=== PATIENT | female | born 1970 | race American Indian/Alaskan Native ===

== ENCOUNTER 2018-03-04 11:24 | Emergency (ER) | payer SELFPAY ==
[2018-03-04] MEDS ORDERED: BICILLIN L-A IM ONE (14:44)
[2018-03-04] MEDS ORDERED: NORCO PO ONE (14:44)
[2018-03-04] MEDS ORDERED: DECADRON IM ONE (14:44)
[2018-03-04] MEDS ORDERED: CATAPRES PO ONE (14:46)
--- NOTE | 2018-03-04 14:51 | Emergency Department Report ---
ED ENT HPI - General Chief complaint: High BP Stated complaint: EAR PAIN/HEAD PAIN Time Seen by Provider: 03/04/18 14:29 Source: patient Mode of arrival: Ambulatory Limitations: No Limitations - History of Present Illness Initial comments: He is a 47-year-old female who is complaining of 2-3 days of sore throat with radiation of pain to her right ear. Patient states pain is 8 out of 10 when she swallows. Patient has been not taking her blood pressure medicine past several days because of pain. Patient denies any nausea vomiting diarrhea or cough at this time. Patient has been around a child who also has been ill in the last week. - Related Data Home Medications Medication Instructions Recorded Confirmed Last Taken Lisinopril/Hydrochlorothiazide 1 tab PO QDAY 09/05/15 09/10/15 09/10/15 05:45 [Zestoretic 20-12.5 mg] Previous Rx's Medication Instructions Recorded Last Taken Type HYDROcodone/APAP 5-325 [[place] 1 - 2 each PO Q4HR PRN #30 tablet 09/10/15 Unknown Rx 5/325] HYDROcodone/ACETAMINOPHEN 15 ml PO Q6HR PRN #150 solution 03/04/18 Unknown Rx [Hydrocodon-Acetamin 7.5-325/15] predniSONE [Deltasone] 20 mg PO QDAY #5 tab 03/04/18 Unknown Rx Allergies Allergy/AdvReac Type Severity Reaction Status Date / Time codeine AdvReac Dizziness Verified 08/12/15 09:53 morphine AdvReac Unknown Verified 07/13/15 02:38 ED Dental HPI - General Chief complaint: High BP Stated complaint: EAR PAIN/HEAD PAIN Time Seen by Provider: 03/04/18 14:29 Source: patient Mode of arrival: Ambulatory Limitations: No Limitations - Related Data Home Medications Medication Instructions Recorded Confirmed Last Taken Lisinopril/Hydrochlorothiazide 1 tab PO QDAY 09/05/15 09/10/15 09/10/15 05:45 [Zestoretic 20-12.5 mg] Previous Rx's Medication Instructions Recorded Last Taken Type HYDROcodone/APAP 5-325 [[place] 1 - 2 each PO Q4HR PRN #30 tablet 09/10/15 Unknown Rx 5/325] HYDROcodone/ACETAMINOPHEN 15 ml PO Q6HR PRN #150 solution 03/04/18 Unknown Rx [Hydrocodon-Acetamin 7.5-325/15] predniSONE [Deltasone] 20 mg PO QDAY #5 tab 03/04/18 Unknown Rx Allergies Allergy/AdvReac Type Severity Reaction Status Date / Time codeine AdvReac Dizziness Verified 08/12/15 09:53 morphine AdvReac Unknown Verified 07/13/15 02:38 ED Review of Systems ROS: Stated complaint: EAR PAIN/HEAD PAIN Other details as noted in HPI Constitutional: denies: chills, fever Eyes: denies: eye pain, eye discharge, vision change ENT: ear pain, throat pain. denies: dental pain, epistaxis Respiratory: denies: cough, shortness of breath, wheezing Cardiovascular: denies: chest pain, palpitations Endocrine: no symptoms reported Gastrointestinal: denies: abdominal pain, nausea, diarrhea Genitourinary: denies: urgency, dysuria, discharge Musculoskeletal: denies: back pain, joint swelling, arthralgia Skin: denies: rash, lesions Neurological: denies: headache, weakness, paresthesias Psychiatric: denies: anxiety, depression Hematological/Lymphatic: denies: easy bleeding, easy bruising ED Past Medical Hx - Past Medical History Hx Hypertension: Yes Hx Heart Attack/AMI: Yes (Mild in 1997; Denies chest pain) Hx Renal Disease: No Hx Arthritis: Yes (KNEES) Hx Headaches / Migraines: Yes Hx Seizures: No Hx Asthma: No - Surgical History Additional Surgical History: Ab0 - Social History Smoking Status: Never Smoker Substance Use Type: None - Medications Home Medications: Home Medications Medication Instructions Recorded Confirmed Last Taken Type Lisinopril/Hydrochlorothiazide 1 tab PO QDAY 09/05/15 09/10/15 09/10/15 05:45 History [Zestoretic 20-12.5 mg] HYDROcodone/APAP 5-325 [[place] 1 - 2 each PO Q4HR PRN #30 tablet 09/10/15 Unknown Rx 5/325] HYDROcodone/ACETAMINOPHEN 15 ml PO Q6HR PRN #150 solution 03/04/18 Unknown Rx [Hydrocodon-Acetamin 7.5-325/15] predniSONE [Deltasone] 20 mg PO QDAY #5 tab 03/04/18 Unknown Rx ED Physical Exam - General Limitations: No Limitations General appearance: alert, in no apparent distress - Head Head exam: Present: atraumatic, normocephalic - Eye Eye exam: Present: normal appearance - ENT ENT exam: Present: mucous membranes moist, other (agents bilateral tonsils are erythematous and swollen with some mild exudates. There are some palatal petechiae present. Patient also has some anterior cervical lymph nodes present. Patient's right TM is clear but she does have [id number] amount of fluid behind the TM.) - Neck Neck exam: Present: normal inspection - Respiratory Respiratory exam: Present: normal lung sounds bilaterally. Absent: respiratory distress - Cardiovascular Cardiovascular Exam: Present: regular rate, normal rhythm. Absent: systolic murmur, diastolic murmur, rubs, gallop - GI/Abdominal GI/Abdominal exam: Present: soft, normal bowel sounds - Extremities Exam Extremities exam: Present: normal inspection - Back Exam Back exam: Present: normal inspection - Neurological Exam Neurological exam: Present: alert, oriented X3 - Psychiatric Psychiatric exam: Present: normal affect, normal mood - Skin Skin exam: Present: warm, dry, intact, normal color. Absent: rash ED Course Vital Signs 03/04/18 12:36 Temperature 99 F Pulse Rate 91 H Respiratory 16 Rate Blood Pressure 197/122 O2 Sat by Pulse 97 Oximetry ED Medical Decision Making - EKG Data -: EKG Interpreted by Me EKG shows normal: sinus rhythm, axis, intervals, QRS complexes, ST-T waves Rate: normal - EKG Data Interpretation: normal EKG - Medical Decision Making Patient meeting criteria for her. Treatment with antibiotics. Patient given a shot of Bicillin and Decadron to help with swelling. Patient was given Catapres for her blood pressure patient has no evidence of any end organ damage and can continue with her blood pressure meds at home. Critical care attestation.: If time is entered above; I have spent that time in minutes in the direct care of this critically ill patient, excluding procedure time. ED Disposition Clinical Impression: Exudative pharyngitis Disposition: DC-01 TO HOME OR SELFCARE Is pt being admited?: No Does the pt Need Aspirin: No Condition: Stable Instructions: Pharyngitis (ED) Referrals: PRIMARY CARE, [Primary Care Provider] - 3-5 Days Time of Disposition: 14:51
[2018-03-04 14:57] VITALS: BP 165/102
== END 2018-03-04 15:07 | disposition home or self-care (01) ==
LOC: ED 11:24
DX: J02.9 Acute pharyngitis, unspecified (principal); I10 Essential (primary) hypertension; I25.2 Old myocardial infarction; M19.90 Unspecified osteoarthritis, unspecified site; G43.909 Migraine, unspecified, not intractable, without status migrainosus; Z88.5 Allergy status to narcotic agent; Z88.6 Allergy status to analgesic agent
CPT/HCPCS: 93005; 93010; 96372; 99282; J0561; J1100